=== PATIENT | male | born 1940 | race Caucasian/White ===

== ENCOUNTER → 2018-06-25 | Outpatient (REF) | payer MEDICARE, OTHER ==
[2018-06-25 15:29] LABS: ALBUMIN 4.2 GM/DL (3.2-5.2); BILIRUBIN,DIRECT 0.1 MG/DL (0.0-0.2); BILIRUBIN,TOTAL 0.5 MG/DL (0.2-1.0); TOTAL PROTEIN 7.5 GM/DL (6.4-8.2)
== END ==
LOC: M SFHCPLAZ 12:02
PROVIDERS: ATTEND Dermatology
DX: L60.8 Other nail disorders (principal)

== ENCOUNTER → 2018-06-25 | Outpatient (REF) | payer MEDICARE, OTHER | LOC: M SFHCPLAZ 19:25 | PROVIDERS: ATTEND Dermatology | DX: C44.02 Squamous cell carcinoma of skin of lip (principal); C44.612 Basal cell carcinoma of skin of right upper limb, including shoulder; C44.519 Basal cell carcinoma of skin of other part of trunk ==

== ENCOUNTER → 2018-11-28 | Outpatient (REF) | payer MEDICARE, OTHER | LOC: M SFHCPLAZ 17:08 | PROVIDERS: ATTEND Dermatology | DX: C44.02 Squamous cell carcinoma of skin of lip (principal) ==

== ENCOUNTER → 2019-09-11 | Outpatient (REF) | payer OTHER | LOC: M LAB REF 17:43 | PROVIDERS: ATTEND Dermatology | DX: L57.0 Actinic keratosis (principal) | CPT/HCPCS: 11102; 17000; 17003; 88305; G0463 ==

== ENCOUNTER → 2019-10-10 | Outpatient (REF) | payer OTHER | LOC: M LAB REF 17:34 → EEVIPCON 17:34 | PROVIDERS: ATTEND Dermatology | DX: S81.802A Unspecified open wound, left lower leg, initial encounter (principal); X58.XXXA Exposure to other specified factors, initial encounter; Y92.9 Unspecified place or not applicable ==

== ENCOUNTER → 2020-08-19 | Outpatient (CLI) | payer OTHER | LOC: M LABSMTC 10:11 | PROVIDERS: ATTEND Internal Medicine Cardiovascular Disease | DX: Z20.828 Contact with and (suspected) exposure to other viral communicable diseases (principal) ==

== ENCOUNTER 2020-09-26 00:30 | Inpatient (IN) | payer OTHER ==
[~2020-09-26] VITALS: Ht 182.9 cm; Wt 124.7 kg
[2020-09-26] MEDS ORDERED: ATOR40TA75 PO (03:35)
[2020-09-26] MEDS ORDERED: BIMA01SOL OU (03:35)
[2020-09-26] MEDS ORDERED: VITA500T17 PO (03:35)
[2020-09-26] MEDS ORDERED: CLOP75TA2 PO (03:35)
[2020-09-26] MEDS ORDERED: VALS1TAB67 PO (03:35)
[2020-09-26] MEDS ORDERED: QC A650T3 PO (03:35)
[2020-09-26] MEDS ORDERED: ASPI81TA26 PO (03:35)
[2020-09-26] MEDS ORDERED: DORZ2SOL5 OU (03:35)
[2020-09-26] MEDS ORDERED: SYST1SOL OU (03:37)
[2020-09-26] MEDS ORDERED: med rec comment (03:40)
[2020-09-26] MEDS ORDERED: MORPHINE 2 MG/ML 1ML VIAL (J2270) IV ONE (03:40)
[2020-09-26 04:01] LABS: BASO % 0.5 % (0.0-1.0); EOS # 0.2 10^3/uL (0.0-0.5); EOS % 2.6 % (0.0-3.0); HEMATOCRIT 34.9 % (42.0-52.0); HEMOGLOBIN 11.8 g/dl (13.5-17.5); LYMPH # 0.8 10^3/uL (1.5-5.0); LYMPH % 14.3 % (24.0-44.0); MEAN CORPUSCULAR HGB CONC 33.8 g/dl (32.0-36.5); MEAN CORPUSCULAR VOLUME 103.6 fl (80.0-96.0); MONO # 0.6 10^3/uL (0.0-0.8); MONO % 10.8 % (2.0-8.0); NEUTROPHILS % 71.3 % (36.0-66.0); RED BLOOD COUNT 3.37 10^6/uL (4.30-6.10); WHITE BLOOD COUNT 5.7 10^3/uL (4.0-10.0)
[2020-09-26 04:21] LABS: PLATELET COUNT, AUTOMATED 90 10^3/uL (150-450)
[2020-09-26 04:31] LABS: BLOOD UREA NITROGEN 17 MG/DL (7-18); CALCIUM LEVEL 8.7 MG/DL (8.8-10.2); CARBON DIOXIDE LEVEL 31 MEQ/L (21-32); CHLORIDE LEVEL 104 MEQ/L (98-107); CREATININE FOR GFR 0.81 MG/DL (0.70-1.30); GLOMERULAR FILTRATION RATE > 60.0 (>35); GLUCOSE, FASTING 110 MG/DL (70-100); POTASSIUM SERUM 3.9 MEQ/L (3.5-5.1); SODIUM LEVEL 140 MEQ/L (136-145)
[2020-09-26] MEDS ORDERED: HYDR-3490 PO (04:51)
[2020-09-26 05:03] LABS: TROPONIN I 0.05 NG/ML (< 0.10)
[2020-09-26] MEDS ORDERED: MAALOX 30 ML SUSP *UDC PO PRN (05:30)
[2020-09-26] MEDS ORDERED: MOM 30ML SUSPENSION UDC PO PRN (05:30)
--- NOTE | 2020-09-26 05:33 | HPEPDOC ---
[facility] Medical History & Physical Date of Admission Sep 26, 2020 Date of Service: Sep 26, 2020 History and Physical CHIEF COMPLAINT: R ankle fracture HISTORY OF PRESENT ILLNESS: Patient is an 79-year-old male with a history of coronary artery disease status post status post stenting, most recently on 09/24/20 at [facility], hypertension, suspected aortic valve stenosis with likely to have her in September 2020. After discharge from [facility] on 09/25/20, patient sustained a fall at home, mechanical, resulting in sudden onset of right ankle pain. Patient was evaluated at [facility] emergency room where x-rays indicated a bimalleolar fracture. Patient was transferred to [facility] ER for orthopedic surgery evaluation. Patient will be admitted to hospitalist service. An ongoing orthopedic evaluation. Discussed with Dr. Bonner considering minimally invasive surgery versus closed reduction with casting in the OR. Patient to be hypertensive in the ED, BP 171 or 77, temperature 97.9, pulse 87, respiratory 18, saturating 96% room air. Blood work reviewed, no leukocytosis. Hemoglobin 11.8. Platelets 90. Sodium 140. Potassium 3.9. Troponin 0.05. EKG showing normal sinus rhythm without ischemic changes. Patient denying chest pain, chest breath, palpitations, nausea, vomiting, diarrhea or headache. Complaining of moderate right ankle pain approximately 5 out of 10. PAST MEDICAL HISTORY: CAD s/p 5 stents 08/2020, 1 stent 09/24/20 Aortic valve stenosis s/p TAVR 09/21 at [facility]? HTN Hard of hearing PAST SURGICAL HISTORY: Appendectomy with partial colon resection for rupture appendix Cardiac stenting TAVR SOCIAL HISTORY: Former smoker No etoh use No illicit drug use FAMILY HISTORY: reviewed with patient, no relevent history provided ALLERGIES: Please see below. REVIEW OF SYSTEMS: 10 point ROS completed, relevant findings are noted in HPI HOME MEDICATIONS: Please see below. PHYSICAL EXAMINATION: VITAL SIGNS: please see below General: NAD, comfortable HEENT: PERRLA, EOMI, sclerae clear Neck: supple, normal ROM, no JVD Respiratory: lungs CTAB, no wheeze, no rales, no crackles CVS: RRR, normal S1, S2, no murmurs Abdo: soft, no masses, no hepatosplenomegaly, BS+, no rebound tenderness Extremities: no edema, pulses 2+ MSK: no joint deformities, normal ROM. R leg in splint. Moving all toes. No cyanosis. Neuro: no focal neuro deficits, moving all 4 extremities, CN2-12 intact. Strength 5/5 in all 4 extremities. No nystagmus. Psych: calm, cooperative, AAO x 3 LABORATORY DATA: See below. IMAGING: XR report from [facility] (09/25/20) reviewed: bimaleolar fracture R ankle. MICROBIOLOGY: Please see below. ASSESSMENT: Patient is an 79-year-old male with a history of coronary artery disease status post status post stenting, most recently was DCon 09/24/20 at [facility], hypertension, suspected aortic valve stenosis with likely to have her in September 2020. After discharge from [facility] on 09/25/20, patient sustained a fall at home, mechanical, resulting in sudden onset of right ankle pain. Patient was evaluated at [facility] emergency room where x-rays indicated a bimall eolar fracture. Transfered to [facility] for orthopedic surgery evaluation. Dr. Bonner consulted, considering minimally invasive surgery vs closed reduction with casting in the OR. . PLAN: CAD - s/p 1 stent at [facility], was DC on 09/24/20, and previously 5 stents placed in 08/2020 - c/w ASA, plavix - EKG showing no ischemic changes - Trop 0.05. Will repeat - presently free of chest pain - d/w Dr. Hubbard. No contraindication for surgery, other than need to continue plavix. - Dr. Bonner aware of recent stenting and need for ongoing DAPT. - pain control with morphine for breakthrough, tylenol - NPO at this time - RCRI score 1, 6.0% risk of 30 day risk of , [place] or cardiac arrest Aortic stenosis? hx reported by patient - reports TAVR? at [facility] 2 weeks ago - denies SOB, LOC, palpitations - placed request for records HTN - resume home meds: HCTZ 25 mg PO daily, Valsartan 80 mg daily Glaucoma - needs to bring bitamaprost drops DVT ppx: SCDs. TEDs. Vital Signs Vital Signs Date Time Temp Pulse Resp B/P (MAP) Pulse Ox O2 Delivery O2 Flow Rate FiO2 09/26/20 04:04 18 95 09/26/20 00:58 97.9 87 171/77 (108) Laboratory Data Labs 24H Laboratory Tests 2 09/26/20 03:37: Immature Granulocyte % (Auto) 0.5, Neutrophils (%) (Auto) 71.3H, Lymphocytes (%) (Auto) 14.3L, Monocytes (%) (Auto) 10.8H, Eosinophils (%) (Auto) 2.6, Basophils (%) (Auto) 0.5, Neutrophils # (Auto) 4.0, Lymphocytes # (Auto) 0.8L, Monocytes # (Auto) 0.6, Eosinophils # (Auto) 0.2, Basophils # (Auto) 0.0, Nucleated Red Blood Cells % (auto) 0.0, Immature Platelet Fraction 1.4, Anion Gap 5L, Glomerular Filtration Rate > 60.0, Calcium Level 8.7L, Troponin I 0.05 CBC/BMP Laboratory Tests 09/26/20 03:37 Home Medications Scheduled Aspirin (Aspirin EC) 81 Mg Tablet.dr, 81 MG PO DAILY Atorvastatin Calcium (Atorvastatin Calcium) 40 Mg Tablet, 40 MG PO QPM Bimatoprost (Lumigan) 0.01% 2.5ML Drops, 1 DROP OU DAILY Clopidogrel Bisulfate (Clopidogrel) 75 Mg Tablet, 75 MG PO DAILY Cyanocobalamin (Vitamin B-12) (Vitamin B-12) 500 Mcg Tablet, 500 MCG PO DAILY Dorzolamide HCl/Timolol Maleat (Dorzolamide-Timolol Eye Drops) 10 Ml Drops, 1 DROP OU BID Hydrochlorothiazide (Hydrochlorothiazide) 25 Mg Tablet, 25 MG PO DAILY Valsartan (Valsartan) 160 Mg Tablet, 80 MG PO DAILY Scheduled PRN Acetaminophen (Acetaminophen 8 Hour) 650 Mg Tablet.er, 1,300 MG PO Q8H PRN for pain Propylene Glycol/Peg 400 (Systane 0.3-0.4% Eye Drops) 15 Ml Drops, 1 DROP OU QID PRN for DRY EYES Miscellaneous Medications [med rec comment] pt unable to hear on phone. hung up phone,used external med history,list provided and last office visit 07/22/20 Allergies Coded Allergies: No Known Allergies (Unverified , 09/26/20) SANTHOSH OCONNOR MD Sep 26, 2020 05:33
[2020-09-26] MEDS ORDERED: MORPHINE 2 MG/ML 1ML VIAL (J2270) IV PRN (06:35)
[2020-09-26] MEDS ORDERED: D5W/0.9% SODIUM CHLORIDE 1,000 ML IV SCH (08:30)
[2020-09-26 08:55] VITALS: BP 171/77
[2020-09-26] MEDS: COSOPT OCUMETER PLUS 10ML (DORZOLAMIDE/TIMOLOL) OU SCH ×2 (09:00→21:20)
[2020-09-26] MEDS ORDERED: VALSARTAN 80 MG TAB (DIOVAN) PO SCH (09:00)
[2020-09-26] MEDS: DOCUSATE SODIUM 100MG CAPSULE PO SCH ×2 (09:00→21:20)
--- NOTE | 2020-09-26 09:53 | CR.PDOC ---
General Date of Consultation: Sep 26, 2020 Consultation REASON FOR CONSULTATION/CHIEF COMPLAINT: right ankle bimalleolar fracture minimally displaced History from patient and admission H&P HISTORY OF PRESENT ILLNESS: Patient is an 79-year-old male with a history of coronary artery disease status post status post stenting, most recently on 09/24/20 at [facility], hypertension, suspected aortic valve stenosis. After discharge from [facility] on 09/25/20, patient sustained a fall at home, mechanical, resulting in sudden onset of right ankle pain. Patient states that he did weightbear without significant pain. Patient was evaluated at [facility] emergency room where x-rays indicated a bimalleolar fracture. Patient was transferred to [facility] for orthopedic surgery evaluation. Patient admitted to hospitalist service. Patient states that he tripped over a root while walking outside. Pain is controlled at this time, but reports tension with swelling. PAST MEDICAL HISTORY: CAD s/p 5 stents 08/2020, 1 stent 09/24/20 Aortic valve stenosis s/p TAVR 09/21 at [facility]? HTN Hard of hearing PAST SURGICAL HISTORY: Appendectomy with partial colon resection for rupture appendix Cardiac stenting TAVR SOCIAL HISTORY: Former smoker No etoh use No illicit drug use FAMILY HISTORY: reviewed with patient, no relevent history provided ALLERGIES: Please see below. REVIEW OF SYSTEMS: See HPI HOME MEDICATIONS: Please see below. PHYSICAL EXAMINATION: Right lower extremity in backslab and sugartong splint. Sensation grossly intact to 1st webspace. Cap refill less than 3 seconds. Moving toes. LABORATORY DATA: See below. IMAGING: XR imaging shows bimalleolar ankle fracture of right side with minimal displacement. MICROBIOLOGY: Please see below. ASSESSMENT: Patient is an 79-year-old male with a history of coronary artery disease status post status post stenting, most recently was DCon 09/24/20 at [facility], hypertension, suspected aortic valve stenosis with likely to have her in September 2020. After discharge from [facility] on 09/25/20, patient sustained a fall at home, mechanical, resulting in sudden onset of right ankle pain. Patient was evaluated at [facility] emergency room where x-rays indicated a bimalleolar fracture. Transfered to [facility] for orthopedic surgery evaluation. PLAN: Discussed operative vs non operative options with patient. Patient consented for closed reduction and casting possible ORIF. After discussing risks and benefits outlined in the consent, the patient preferred casting given his multiple medical comorbidities. He is aware of risks of painful non or mal union and risk of Post traumatic OA. On speaking with the hospitalist service, patient would benefit from conservative treatment as he cannot be taken off ASA or plavix at this time due to recent stenting. Plan will be attempt at CR and casting. PT to eval and follow post op. NWB right leg. Vital Signs/I&O Vital Signs Date Time Temp Pulse Resp B/P (MAP) Pulse Ox O2 Delivery O2 Flow Rate FiO2 09/26/20 08:55 98.3 78 18 171/77 (108) 95 09/26/20 08:30 Room Air Laboratory Data Labs 24H Laboratory Tests 2 09/26/20 03:37: Immature Granulocyte % (Auto) 0.5, Neutrophils (%) (Auto) 71.3H, Lymphocytes (%) (Auto) 14.3L, Monocytes (%) (Auto) 10.8H, Eosinophils (%) (Auto) 2.6, Basophils (%) (Auto) 0.5, Neutrophils # (Auto) 4.0, Lymphocytes # (Auto) 0.8L, Monocytes # (Auto) 0.6, Eosinophils # (Auto) 0.2, Basophils # (Auto) 0.0, Nucleated Red Blood Cells % (auto) 0.0, Immature Platelet Fraction 1.4, Anion Gap 5L, Glomerular Filtration Rate > 60.0, Calcium Level 8.7L, Troponin I 0.05 09/26/20 07:53: Troponin I 0.04 CBC/BMP Laboratory Tests 09/26/20 03:37 Allergies Coded Allergies: No Known Allergies (Unverified , 09/26/20) Home Medications Scheduled Aspirin (Aspirin EC) 81 Mg Tablet.dr, 81 MG PO DAILY, (Reported) Atorvastatin Calcium (Atorvastatin Calcium) 40 Mg Tablet, 40 MG PO QPM, (Reported) Bimatoprost (Lumigan) 0.01% 2.5ML Drops, 1 DROP OU DAILY, (Reported) Clopidogrel Bisulfate (Clopidogrel) 75 Mg Tablet, 75 MG PO DAILY, (Reported) Cyanocobalamin (Vitamin B-12) (Vitamin B-12) 500 Mcg Tablet, 500 MCG PO DAILY, (Reported) Dorzolamide HCl/Timolol Maleat (Dorzolamide-Timolol Eye Drops) 10 Ml Drops, 1 DR OP OU BID, (Reported) Hydrochlorothiazide (Hydrochlorothiazide) 25 Mg Tablet, 25 MG PO DAILY, (Reported) Valsartan (Valsartan) 160 Mg Tablet, 80 MG PO DAILY, (Reported) Scheduled PRN Acetaminophen (Acetaminophen 8 Hour) 650 Mg Tablet.er, 1,300 MG PO Q8H PRN for pain, (Reported) Propylene Glycol/Peg 400 (Systane 0.3-0.4% Eye Drops) 15 Ml Drops, 1 DROP OU QID PRN for DRY EYES, (Reported) Miscellaneous Medications [med rec comment] , (Reported) pt unable to hear on phone. hung up phone,used external med history,list provided and last office visit 07/22/20 JOSESITO MCGINNIS MD Sep 26, 2020 09:53
[2020-09-26] MEDS: CYANOCOBALAMIN 500 MCG TAB PO SCH (09:57)
[2020-09-26 11:16] VITALS: BP 132/78
[2020-09-26 15:25] VITALS: BP 146/74
[2020-09-26] MEDS ORDERED: ONDANSETRON 4MG/2ML VIAL As Ordered ONE (15:48)
[2020-09-26] MEDS ORDERED: MIDAZOLAM INJ 2MG/2ML VIAL (J2250 PER 1MG) As Ordered ONE (15:48)
[2020-09-26] MEDS ORDERED: fentaNYL 100 MCG/2 ML INJECTION (J3010) As Ordered ONE (15:48)
[2020-09-26] MEDS ORDERED: propofoL 200 MG/20 ML VIAL As Ordered ONE (15:48)
[2020-09-26] MEDS ORDERED: LIDOCAINE 2% 100MG/5ML SDV (FOR ANES.) As Ordered ONE (15:48)
--- NOTE | 2020-09-26 17:31 | REP ---
INDICATION: Right ankle fracture COMPARISON: None. TECHNIQUE: Intraoperative fluoroscopic imaging C-arm technique. FINDINGS: Multiple images of the right ankle demonstrate generalized soft tissue swelling. Nondisplaced fracture is poorly identified. Total fluoroscopic time 13.2 seconds. IMPRESSION: Soft tissue swelling. <Electronically signed by Saul Camarillo > 09/26/20 [id number]
[2020-09-26] MEDS ORDERED: fentaNYL 100 MCG/2 ML INJECTION (J3010) IV PRN (17:35)
[2020-09-26] MEDS ORDERED: ONDANSETRON 4MG/2ML VIAL IV PRN (17:35)
[2020-09-26] MEDS ORDERED: LR 1,000 ML IV SCH (17:35)
--- NOTE | 2020-09-26 18:06 | REP ---
INDICATION: POST OP EVAL IN PACU COMPARISON: None. TECHNIQUE: AP, lateral, bilateral oblique views. FINDINGS: Satisfactory reduction of the distal fibular may metaphyseal fracture. Further evaluation is limited by overlying cast material. IMPRESSION: Satisfactory reduction of the distal fibular fracture. <Electronically signed by Saul Camarillo > 09/26/20 [id number]
[2020-09-26 18:11] VITALS: BP 128/74
--- NOTE | 2020-09-26 18:11 | ROOPDOC ---
[facility] Report Of Operation Report of Operation DATE OF PROCEDURE: 09/26/20 PREPROCEDURE DIAGNOSES: right ankle bimalleolar fracture POSTPROCEDURE DIAGNOSES: right ankle bimalleolar fracture PROCEDURE PERFORMED: Closed Reduction and casting R ankle fracture SURGEON: Louis Mcginnis MD RECRUITMENT AND OUTREACH ASSISTANT:[place] assist ANESTHESIA: Concious sedation ESTIMATED BLOOD LOSS: nil COMPLICATIONS: no known REMARKS: The patient has multiple medical comorbidities and is 2 days s/p cardiac stenting. It was agreed upon by the hospitalist service, anesthesia and the patient that we would try to avoid open surgical intervention. FINDINGS: Difficult to reduce medial malleolar fragment, possible soft tissue interposition, but the ankle mortise appeared to be improved, as did the displacement and position of the lateral malleolar fracture SPECIMENS REMOVED: nil PROCEDURE NOTE: Patient was grossly NVI prior to procedure to R foot and ankle DESCRIPTION OF PROCEDURE: Patient was transferred to the OR table, Procedural checklist and pause carried out. Anesthetic was induced. Splint was removed. Evidence of swelling with no obvious open wounds/fracture sites. Closed Reduction attempted and checked on fluoro. Imaging was somewhat difficu lt due to positioning, but it appeared the mortise position was improved. Webril was applied with extra padding to bony prominences. No stockinette was used due to risk of swelling. Plaster cast material was applied and appropriate molding performed. Fluoro appeared to show persistent displacement of the medial malleolus, but the mortise position and lateral malleolar position appeared improved. Plaster cast was allowed to cure. It was then split with the cast saw and opened to relieve some of the pressure to allow for swelling. Naldo wrap loosely applied. Ice applied to cool down splint and leg elevated. Anesthetic reversed and patient take to PACU in stable condition. Grossly NVI to right foot post casting. Moving toes, cap refill <3 seconds, sensation to 1st webspace. Patient will be readmitted to Hospitalist service with PT and OT to mobilize and eval. NWB Right leg. LOUIS MCGINNIS MD Sep 26, 2020 18:11
[2020-09-26] MEDS ORDERED: oxyCODONE 5MG TAB PO PRN ×2 (18:25)
[2020-09-26] MEDS: LR 1,000 ML IV SCH (19:00)
[2020-09-26 20:00] VITALS: BP 179/74
--- NOTE | 2020-09-26 20:49 | ECGEPIP ---
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
[2020-09-26] MEDS: ATORVASTATIN 20 MG TAB PO SCH (21:20)
[2020-09-27] VITALS: BP 145/70
[2020-09-27 04:00] VITALS: BP 144/70
[2020-09-27] MEDS: LR 1,000 ML IV SCH (04:22)
[2020-09-27 05:50] LABS: BASO % 0.4 % (0.0-1.0); EOS # 0.3 10^3/uL (0.0-0.5); EOS % 5.8 % (0.0-3.0); HEMATOCRIT 33.9 % (42.0-52.0); HEMOGLOBIN 11.7 g/dl (13.5-17.5); LYMPH # 0.9 10^3/uL (1.5-5.0); LYMPH % 17.1 % (24.0-44.0); MEAN CORPUSCULAR HEMOGLOBIN 35.7 pg (27.0-33.0); MEAN CORPUSCULAR HGB CONC 34.5 g/dl (32.0-36.5); MEAN CORPUSCULAR VOLUME 103.4 fl (80.0-96.0); MONO # 0.5 10^3/uL (0.0-0.8); MONO % 10.3 % (2.0-8.0); NEUTROPHILS # 3.3 10^3/uL (1.5-8.5); NEUTROPHILS % 65.6 % (36.0-66.0); RED BLOOD COUNT 3.28 10^6/uL (4.30-6.10)
[2020-09-27 05:53] LABS: PLATELET COUNT, AUTOMATED 80 10^3/uL (150-450)
[2020-09-27 06:09] LABS: BLOOD UREA NITROGEN 11 MG/DL (7-18); CALCIUM LEVEL 8.7 MG/DL (8.8-10.2); CARBON DIOXIDE LEVEL 30 MEQ/L (21-32); CHLORIDE LEVEL 103 MEQ/L (98-107); CREATININE FOR GFR 0.72 MG/DL (0.70-1.30); GLOMERULAR FILTRATION RATE > 60.0 (>35); GLUCOSE, FASTING 106 MG/DL (70-100); POTASSIUM SERUM 3.9 MEQ/L (3.5-5.1); SODIUM LEVEL 140 MEQ/L (136-145)
[2020-09-27 07:17] VITALS: BP 154/74
--- NOTE | 2020-09-27 08:53 | IPNPDOC ---
Text Note Date of Service The patient was seen on 09/27/20. NOTE POD 1 Right ankle # CR and casting Pt did well overnight, denies pain. PT in the room. Recommendation for further evaluation for tomorrow. Pt still not balanced to avoid wb to right ankle. Cast intact, pt states that it loosened up proximally overnight. Grossly NVI to R foot. Moving toes, cap refill < 3 seconds and sensation intact to first webspace. Naldo Tensor was removed from bivalved cast and reapplied to tighten down the bivalved area. Pt stated that it felt more snug, thereafter. NVI post tightening of wrap as above. Xray: Imaging taken in PACU post op shows an acceptable reduction of the lateral malleolar fracture with tenriism of the ankle mortise. There is mild displacement of the medial malleolar fracture on the lateral view. Overall acceptable CR of bimalleolar fracture given the patient's circumstances. Plan: Mobilize with PT. Hospitalist service following. Pt will remain in Hospital overnight. Plan for cast change this week in office, Monday, or in hospital if the pt remains due to other medical issues. Reiterated importance of NON weight bearing to right ankle to avoid possible need for surgery. VS,Fishbone, I+O VS, Fishbone, I+O Laboratory Tests 09/27/20 05:17 Vital Signs Date Time Temp Pulse Resp B/P (MAP) Pulse Ox O2 Delivery O2 Flow Rate FiO2 09/27/20 07:17 97.3 76 18 154/74 (100) 98 Room Air 09/26/20 17:49 2.0 I&O- Last 24 Hours up to 6 AM 09/27/20 06:00 Intake Total 780 ml Output Total 500 ml Balance 280 ml JOSESITO MCGINNIS MD Sep 27, 2020 08:53
[2020-09-27] MEDS: DOCUSATE SODIUM 100MG CAPSULE PO SCH ×2 (09:00→20:34)
--- NOTE | 2020-09-27 09:44 | IPNPDOC ---
Subjective Date Seen The patient was seen on 09/27/20. Subjective Chief Complaint/HPI Patient has been evaluated by PT and felt not be be safe for discharge home today. Objective Physical Examination General Exam: Positive: Alert, Cooperative, No Acute Distress Eye Exam: Positive: PERRLA, Conjunctiva & lids normal, EOMI; Negative: Sclera icteric ENT Exam: Positive: Atraumatic, Mucous membr. moist/pink, Pharynx Normal Neck Exam: Positive: Supple; Negative: JVD, thyromegaly Chest Exam: Positive: Clear to auscultation, Normal air movement Heart Exam: Positive: Rate Normal, Regular Rhythm, Normal S1, Normal S2; Negative: Murmurs, Rubs Abdomen Exam: Positive: Normal bowel sounds, Soft; Negative: Tenderness, Hepatospenomegaly Extremity Exam: Positive: Other (right ankle in cast.); Negative: Clubbing, Cyanosis, Edema Skin Exam: Positive: Nl turgor and temperature; Negative: Rash, Breakdown Assessment /Plan Assessment Patient is an 79-year-old male with PMH of coronary artery disease status post status post stenting, most recently on 09/24/20, hypertension, Aortic stenosis s/p TAVR on 09/02/2020, HLD, glaucoma, partial colectomy for ruptured appendix, jeffers d a mechanical fall at home on 09/25/20 sustaining right ankle bimalleolar fracture. Pateint was seen by Dr Bonner and in view of his recent cardiological interventions in the past month including a cardiac stent placement on 09/24/20 it was decided to avoid operative intervention. Patient underwent Closed Reduction and casting R ankle fracture in the OR. Right ankle bimalleolar fracture closed reduction and casting Non weight bearing on right lower extremity for 6 weeks. continue ASA and plavix. PT/OT CAD s/p 1 stent at [facility], was DC on 09/24/20, and previously 5 stents placed in 08/2020 c/w ASA, plavix Aortic stenosis s/p TAVR on 09/02/20 continue home meds. HTN continue HCTZ 25 mg PO daily, Valsartan 80 mg daily Glaucoma bimatoprost drops Obesity BMI of 37.3 complicating care. HLD statin Plan/VTE VTE Prophylaxis Ordered?: Yes VS, I&O, 24H, Fishbone Vital Signs/I&O Vital Signs Date Time Temp Pulse Resp B/P (MAP) Pulse Ox O2 Delivery O2 Flow Rate FiO2 09/27/20 07:17 97.3 76 18 154/74 (100) 98 Room Air 09/26/20 17:49 2.0 I&O- Last 24 Hours up to 6 AM 09/27/20 06:00 Intake Total 780 ml Output Total 500 ml Balance 280 ml Laboratory Data 24H LABS Laboratory Tests 2 09/26/20 07:53: Troponin I 0.04 09/27/20 05:17: Immature Granulocyte % (Auto) 0.8, Neutrophils (%) (Auto) 65.6, Lymphocytes (%) (Auto) 17.1L, Monocytes (%) (Auto) 10.3H, Eosinophils (%) (Auto) 5.8H, Basophils (%) (Auto) 0.4, Neutrophils # (Auto) 3.3, Lymphocytes # (Auto) 0.9L, Monocytes # (Auto) 0.5, Eosinophils # (Auto) 0.3, Basophils # (Auto) 0.0, Nucleated Red Blood Cells % (auto) 0.0, Immature Platelet Fraction 1.3, Anion Gap 7L, Glomerular Filtration Rate > 60.0, Calcium Level 8.7L CBC/BMP Laboratory Tests 09/27/20 05:17 EMILE CASAS MD Sep 27, 2020 07:52
[2020-09-27] MEDS: CLOPIDOGREL 75 MG TAB PO SCH (10:18)
[2020-09-27] MEDS: ASPIRIN 81MG ENTERIC TABLET PO SCH (10:18)
[2020-09-27] MEDS: CYANOCOBALAMIN 500 MCG TAB PO SCH (10:19)
[2020-09-27] MEDS: COSOPT OCUMETER PLUS 10ML (DORZOLAMIDE/TIMOLOL) OU SCH ×2 (10:19→20:34)
[2020-09-27] MEDS: VALSARTAN 80 MG TAB (DIOVAN) PO SCH (10:19)
[2020-09-27 11:34] VITALS: BP 115/62
[2020-09-27] MEDS: ACETAMINOPHEN TAB 650MG DOSE (2X325MG) PO PRN (13:48)
[2020-09-27 20:00] VITALS: BP 132/64
[2020-09-27] MEDS: ATORVASTATIN 20 MG TAB PO SCH (20:34)
[2020-09-28 04:00] VITALS: BP 124/61
[2020-09-28 06:00] LABS: BASO % 0.6 % (0.0-1.0); EOS # 0.3 10^3/uL (0.0-0.5); EOS % 6.8 % (0.0-3.0); HEMATOCRIT 33.4 % (42.0-52.0); HEMOGLOBIN 11.7 g/dl (13.5-17.5); LYMPH # 0.9 10^3/uL (1.5-5.0); LYMPH % 19.9 % (24.0-44.0); MEAN CORPUSCULAR VOLUME 102.8 fl (80.0-96.0); MONO # 0.4 10^3/uL (0.0-0.8); MONO % 9.4 % (2.0-8.0); NEUTROPHILS # 2.9 10^3/uL (1.5-8.5); NEUTROPHILS % 62.7 % (36.0-66.0); RED BLOOD COUNT 3.25 10^6/uL (4.30-6.10); WHITE BLOOD COUNT 4.7 10^3/uL (4.0-10.0)
[2020-09-28 06:04] LABS: PLATELET COUNT, AUTOMATED 95 10^3/uL (150-450)
[2020-09-28 06:26] LABS: BLOOD UREA NITROGEN 11 MG/DL (7-18); CALCIUM LEVEL 8.3 MG/DL (8.8-10.2); CARBON DIOXIDE LEVEL 32 MEQ/L (21-32); CHLORIDE LEVEL 102 MEQ/L (98-107); CREATININE FOR GFR 0.64 MG/DL (0.70-1.30); GLOMERULAR FILTRATION RATE > 60.0 (>35); GLUCOSE, FASTING 104 MG/DL (70-100); POTASSIUM SERUM 3.8 MEQ/L (3.5-5.1); SODIUM LEVEL 138 MEQ/L (136-145)
[2020-09-28 08:00] VITALS: BP 126/58
[2020-09-28] MEDS: ASPIRIN 81MG ENTERIC TABLET PO SCH (09:29)
[2020-09-28] MEDS: DOCUSATE SODIUM 100MG CAPSULE PO SCH ×2 (09:29→22:40)
[2020-09-28] MEDS: CYANOCOBALAMIN 500 MCG TAB PO SCH (09:31)
[2020-09-28] MEDS: CLOPIDOGREL 75 MG TAB PO SCH (09:31)
[2020-09-28] MEDS: COSOPT OCUMETER PLUS 10ML (DORZOLAMIDE/TIMOLOL) OU SCH ×2 (09:31→22:33)
[2020-09-28] MEDS: VALSARTAN 80 MG TAB (DIOVAN) PO SCH (09:34)
--- NOTE | 2020-09-28 09:50 | DS.PDOC ---
Discharge Summary General Date of Admission Sep 26, 2020 at 00:31 Date of Discharge 09/28/20 Discharge Summary PROCEDURES PERFORMED DURING STAY: [None]. DISCHARGE DIAGNOSES: Right ankle bimalleolar fracture SECONDARY DIAGNOSIS: CAD s/p multiple stents most recently on 09/24/20, hypertension, Aortic stenosis s/p TAVR on 09/02/2020, HLD, glaucoma, obesity, partial colectomy for ruptured appendix, COMPLICATIONS/CHIEF COMPLAINT: Ankle Fracture, Bimalleolar Closed. HOSPITAL COURSE: Patient is an 79-year-old male with PMH of coronary artery disease status post status post stenting, most recently on 09/24/20, hypertension, Aortic stenosis s/p TAVR on 09/02/2020, HLD, glaucoma, partial colectomy for ruptured appendix, had a mechanical fall at home on 09/25/20 sustaining right ankle bimalleolar fracture. Pateint was seen by Dr Bonner and in view of his recent cardiological interventions in the past month including a cardiac stent placement on 09/24/20 it was decided to avoid operative intervention. Patient underwent Closed Reduction and casting R ankle fracture in the OR. Right ankle bimalleolar fracture closed reduction and casting Imaging taken in PACU post op shows an acceptable reduction of the lateral malleolar fracture with episcopal of the ankle mortise. There is mild displacement of the medial malleolar fracture on the lateral view. Overall acceptable CR of bimalleolar fracture given the patient's circumstances. Plan for cast change this week in office, Monday, Non weight bearing on right lower extremity for 6 weeks. continue ASA and plavix. PT/OT CAD s/p 1 stent at [facility], was DC on 09/24/20, and previously 5 stents placed in 08/2020 c/w ASA, plavix Aortic stenosis s/p TAVR on 09/02/20 continue home meds. HTN continue HCTZ 25 mg PO daily, Valsartan 80 mg daily Glaucoma bimatoprost drops Obesity BMI of 37.3 complicating care. HLD statin DISCHARGE MEDICATIONS: Please see below. ALLERGIES: Please see below. PHYSICAL EXAMINATION ON DISCHARGE: VITAL SIGNS: Please see below. General Exam: Positive: Alert, Cooperative, No Acute Distress Eye Exam: Positive: PERRLA, Conjunctiva & lids normal, EOMI; Negative: Sclera icteric ENT Exam: Positive: Atraumatic, Mucous membr. moist/pink, Pharynx Normal Neck Exam: Positive: Supple; Negative: JVD, thyromegaly Chest Exam: Positive: Clear to auscultation, Normal air movement Heart Exam: Positive: Rate Normal, Regular Rhythm, Normal S1, Normal S2; Negative: Murmurs, Rubs Abdomen Exam: Positive: Normal bowel sounds, Soft; Negative: Tenderness, Hepatosplenomegaly Extremity Exam: Positive: Other (right ankle in cast.); Negative: Clubbing, Cyanosis, Edema Skin Exam: Positive: Nl turgor and temperature; Negative: Rash, Breakdown LABORATORY DATA: Please see below. ACTIVITY: Non weight bearing on right lower extremity x 6 weeks DIET: Regular DISCHARGE PLAN: Rehab vs home with services DISCHARGE INSTRUCTIONS: Follow up with Dr Bonner on 10/02/20 for cast change DISCHARGE CONDITION: [Stable]. TIME SPENT ON DISCHARGE: 35 minutes. Vital Signs/I&Os Vital Signs Date Time Temp Pulse Resp B/P (MAP) Pulse Ox O2 Delivery O2 Flow Rate FiO2 09/28/20 04:00 97.3 71 20 124/61 (82) 96 Room Air 09/26/20 17:49 2.0 I&O- Last 24 Hours up to 6 AM 09/28/20 05:59 Intake Total 900 ml Output Total 2575 ml Balance -1675 ml Laboratory Data Labs 24H Laboratory Tests 2 09/28/20 05:20: Immature Granulocyte % (Auto) 0.6, Neutrophils (%) (Auto) 62.7, Lymphocytes (%) (Auto) 19.9L, Monocytes (%) (Auto) 9.4H, Eosinophils (%) (Auto) 6.8H, Basophils (%) (Auto) 0.6, Neutrophils # (Auto) 2.9, Lymphocytes # (Auto) 0.9L, Monocytes # (Auto) 0.4, Eosinophils # (Auto) 0.3, Basophils # (Auto) 0.0, Nucleated Red Blood Cells % (auto) 0.0, Immature Platelet Fraction 1.2, Anion Gap 4L, Glomerular Filtration Rate > 60.0, Calcium Level 8.3L CBC/BMP Laboratory Tests 09/28/20 05:20 Discharge Medications Scheduled Aspirin (Aspirin EC) 81 Mg Tablet.dr 81 MG PO DAILY, (Reported) Atorvastatin Calcium (Atorvastatin Calcium) 40 Mg Tablet, 40 MG PO QPM, (Reported) Bimatoprost (Lumigan) 0.01% 2.5ML Drops, 1 DROP OU DAILY, (Reported) Clopidogrel Bisulfate (Clopidogrel) 75 Mg Tablet, 75 MG PO DAILY, (Reported) Cyanocobalamin (Vitamin B-12) (Vitamin B-12) 500 Mcg Tablet, 500 MCG PO DAILY, (Reported) Dorzolamide HCl/Timolol Maleat (Dorzolamide-Timolol Eye Drops) 10 Ml Drops, 1 DROP OU BID, (Reported) Hydrochlorothiazide (Hydrochlorothiazide) 25 Mg Tablet, 25 MG PO DAILY, (Reported) Valsartan (Valsartan) 160 Mg Tablet, 80 MG PO DAILY, (Reported) Scheduled PRN Acetaminophen (Acetaminophen 8 Hour) 650 Mg Tablet.er, 1,300 MG PO Q8H PRN for pain, (Reported) Propylene Glycol/Peg 400 (Systane 0.3-0.4% Eye Drops) 15 Ml Drops, 1 DROP OU QID PRN for DRY EYES, (Reported) Miscellaneous Medications [med rec comment] , (Reported) pt unable to hear on phone. hung up phone,used external med history,list provided and last office visit 07/22/20 Allergies Coded Allergies: No Known Allergies (Unverified , 09/26/20) EMILE CASAS MD Sep 28, 2020 07:00
[2020-09-28 10:30] VITALS: BP 142/70
[2020-09-28 14:00] VITALS: BP 135/81
[2020-09-28] MEDS: ATORVASTATIN 20 MG TAB PO SCH (22:33)
[2020-09-29 00:58] VITALS: BP 104/72
[2020-09-29 06:00] VITALS: BP 103/72
[2020-09-29 07:07] LABS: HEMOGLOBIN 12.7 g/dl (13.5-17.5); MEAN CORPUSCULAR HEMOGLOBIN 35.1 pg (27.0-33.0); MEAN CORPUSCULAR HGB CONC 34.3 g/dl (32.0-36.5); MEAN CORPUSCULAR VOLUME 102.2 fl (80.0-96.0); PLATELET COUNT, AUTOMATED 111 10^3/uL (150-450); RED BLOOD COUNT 3.62 10^6/uL (4.30-6.10); WHITE BLOOD COUNT 9.6 10^3/uL (4.0-10.0)
[2020-09-29 07:38] LABS: CALCIUM LEVEL 9.1 MG/DL (8.8-10.2); CREATININE FOR GFR 1.92 MG/DL (0.70-1.30); GLOMERULAR FILTRATION RATE 36.1 (>35); POTASSIUM SERUM 4.2 MEQ/L (3.5-5.1)
[2020-09-29] MEDS ORDERED: NS 1,000 ML IV SCH (08:00)
[2020-09-29] MEDS: VALSARTAN 80 MG TAB (DIOVAN) PO SCH (09:00)
[2020-09-29] MEDS: DOCUSATE SODIUM 100MG CAPSULE PO SCH ×2 (09:00→20:18)
[2020-09-29] MEDS: CLOPIDOGREL 75 MG TAB PO SCH (09:16)
[2020-09-29] MEDS: ASPIRIN 81MG ENTERIC TABLET PO SCH (09:16)
[2020-09-29] MEDS: CYANOCOBALAMIN 500 MCG TAB PO SCH (09:16)
[2020-09-29] MEDS: COSOPT OCUMETER PLUS 10ML (DORZOLAMIDE/TIMOLOL) OU SCH ×2 (09:16→20:23)
--- NOTE | 2020-09-29 13:19 | IPNPDOC ---
Text Note Date of Service The patient was seen on 09/29/20. NOTE Subjective: Patient seen and examined this morning at bedside. He is in good spirits. He is looking forward to rehabilitation. Nurse noted small amount of blood in his stools repeat CBC shows stable hemoglobin. This is likely in the setting of being on dual antiplatelet aspirin and Plavix. No acute overnight events reported to me. Waiting for insurance to clear for discharge to acute rehabilitation unit Objective: Constitutional: Awake and alert, in no apparent distress ENT: Sclera are clear. Mucosa is moist. Respiratory: Lungs CTA bilaterally. No respiratory distress. Cardiovascular: Regular rate and rhythm no murmurs appreciated Gastrointestinal: Abdomen is soft, non distended, non tender, BS present. Musculoskeletal: Right ankle cast Neurologic: No focal neurological deficit. Mental Status: A&O x3, normal affect Skin: No visible rashes Assessment/plan: Patient is an 79-year-old male with PMH of coronary artery disease status post status post stenting, most recently on 09/24/20, hypertension, Aortic stenosis s/p TAVR on 09/02/2020, HLD, glaucoma, partial colectomy for ruptured appendix, had a mechanical fall at home on 09/25/20 sustaining right ankle bimalleolar fracture. Pateint was seen by Dr Bonner and in view of his recent cardiological interventions in the past month including a cardiac stent placement on 09/24/20 it was decided to avoid operative intervention. Patient underwent Closed Reduction and casting R ankle fracture in the OR. Right ankle bimalleolar fracture closed reduction and casting Non weight bearing on right lower extremity for 6 weeks. continue ASA and plavix. Fu OP with ortho PT/OT GI bleed likely in the setting of recently being on ASA and plavix. given recent stent he need dual antiplatelet therapy. Repeat CBC showed stable hgb. Continue to watch and transfuse if necessary. May eventually need follow up with GI after discharge for scopes if bleeding persists. CAD s/p 1 stent at [facility], was DC on 09/24/20, and previously 5 stents placed in 08/2020 c/w ASA, plavix Aortic stenosis s/p TAVR on 09/02/20 continue home meds. HTN continue HCTZ 25 mg PO daily, Valsartan 80 mg daily Glaucoma bimatoprost drops Obesity BMI of 37.3 complicating care. HLD statin Dispo: ARU pending insurance [facility] Hospitalist Lynne HANSEN, I+O Lynne HANSEN I+O Laboratory Tests 09/29/20 06:48 Vital Signs Date Time Temp Pulse Resp B/P (MAP) Pulse Ox O2 Delivery O2 Flow Rate FiO2 09/29/20 09:00 103/72 09/29/20 06:00 98.6 88 19 97 Room Air 09/26/20 17:49 2.0 I&O- Last 24 Hours up to 6 AM 09/29/20 06:00 Intake Total 1410 ml Output Total 500 ml Balance 910 ml GERRI GROSSMAN MD Sep 29, 2020 13:19
[2020-09-29 13:20] LABS: HEMATOCRIT 35.4 % (42.0-52.0); HEMOGLOBIN 12.3 g/dl (13.5-17.5)
[2020-09-29 13:54] LABS: CREATININE FOR GFR 1.55 MG/DL (0.70-1.30); GLOMERULAR FILTRATION RATE 46.2 (>35)
[2020-09-29 14:00] VITALS: BP 116/61
[2020-09-29 20:12] VITALS: BP 117/61
[2020-09-29] MEDS: ATORVASTATIN 20 MG TAB PO SCH (20:14)
[2020-09-30 06:00] VITALS: BP 119/74
[2020-09-30 06:33] LABS: HEMOGLOBIN 11.6 g/dl (13.5-17.5); MEAN CORPUSCULAR HEMOGLOBIN 34.9 pg (27.0-33.0); MEAN CORPUSCULAR HGB CONC 34.1 g/dl (32.0-36.5); MEAN CORPUSCULAR VOLUME 102.4 fl (80.0-96.0); PLATELET COUNT, AUTOMATED 100 10^3/uL (150-450); RED BLOOD COUNT 3.32 10^6/uL (4.30-6.10); WHITE BLOOD COUNT 7.4 10^3/uL (4.0-10.0)
[2020-09-30 07:00] LABS: BLOOD UREA NITROGEN 27 MG/DL (7-18); CALCIUM LEVEL 8.3 MG/DL (8.8-10.2); CARBON DIOXIDE LEVEL 30 MEQ/L (21-32); CHLORIDE LEVEL 101 MEQ/L (98-107); CREATININE FOR GFR 0.99 MG/DL (0.70-1.30); GLOMERULAR FILTRATION RATE > 60.0 (>35); GLUCOSE, FASTING 119 MG/DL (70-100); POTASSIUM SERUM 3.7 MEQ/L (3.5-5.1); SODIUM LEVEL 134 MEQ/L (136-145)
[2020-09-30] MEDS: ASPIRIN 81MG ENTERIC TABLET PO SCH (08:51)
[2020-09-30] MEDS: DOCUSATE SODIUM 100MG CAPSULE PO SCH ×2 (08:51→20:08)
[2020-09-30] MEDS: COSOPT OCUMETER PLUS 10ML (DORZOLAMIDE/TIMOLOL) OU SCH ×2 (08:51→20:07)
[2020-09-30] MEDS: VALSARTAN 80 MG TAB (DIOVAN) PO SCH (08:51)
[2020-09-30] MEDS: CYANOCOBALAMIN 500 MCG TAB PO SCH (08:51)
[2020-09-30] MEDS: CLOPIDOGREL 75 MG TAB PO SCH (08:51)
[2020-09-30 14:00] VITALS: BP 119/68
--- NOTE | 2020-09-30 14:55 | IPNPDOC ---
Text Note Date of Service The patient was seen on 09/30/20. NOTE Subjective: Patient seen and examined this morning at bedside. Discussed with him the plan for rehabilitation. He tells me has noticed no more blood in his stools denies black stools. He tells me he has a history of hemorrhoids and he had a small external hemorrhoid that he thinks popped yesterday which is what caused the bleeding. Otherwise he feels well to acute overnight events reported to me. Denies any chest pain shortness of breath fevers or chills. Objective: Constitutional: Awake and alert, in no apparent distress ENT: Sclera are clear. Mucosa is moist. Respiratory: Lungs CTA bilaterally. No respiratory distress. Cardiovascular: Regular rate and rhythm no murmurs appreciated Gastrointestinal: Abdomen is soft, non distended, non tender, BS present. Musculoskeletal: Right ankle cast Neurologic: No focal neurological deficit. Mental Status: A&O x3, normal affect Skin: No visible rashes Assessment/plan: Patient is an 79-year-old male with PMH of coronary artery disease status post status post stenting, most recently on 09/24/20, hypertension, Aortic stenosis s/p TAVR on 09/02/2020, HLD, glaucoma, partial colectomy for ruptured appendix, had a mechanical fall at home on 09/25/20 sustaining right ankle bimalleolar fracture. Pateint was seen by Dr Bonner and in view of his recent cardiological interventions in the past month including a cardiac stent placement on 09/24/20 it was decided to avoid operative intervention. Patient underwent Closed Re duction and casting R ankle fracture in the OR. Right ankle bimalleolar fracture closed reduction and casting Non weight bearing on right lower extremity for 6 weeks. continue ASA and plavix. Fu OP with ortho PT/OT GI bleed likely in the setting of recently being on ASA and plavix. given recent stent he need dual antiplatelet therapy. Repeat CBC showed stable hgb. Continue to watch and transfuse if necessary. May eventually need follow up with GI after discharge for scopes if bleeding persists. No further bleeding episodes since the initial episode on 09/29 CAD s/p 1 stent at [facility], was DC on 09/24/20, and previously 5 stents placed in 08/2020 c/w ASA, plavix Aortic stenosis s/p TAVR on 09/02/20 continue home meds. HTN continue HCTZ 25 mg PO daily, Valsartan 80 mg daily Glaucoma bimatoprost drops Obesity BMI of 37.3 complicating care. HLD statin Dispo: Insurance denied ARU admission. Switched to [facility] status pending subacute rehabilitation [facility] Hospitalist Lynne HANSEN, I+O VSLynne I+O Laboratory Tests 09/30/20 05:55 Vital Signs Date Time Temp Pulse Resp B/P (MAP) Pulse Ox O2 Delivery O2 Flow Rate FiO2 09/30/20 08:51 154/90 09/30/20 06:00 98.3 79 20 95 Room Air 09/26/20 17:49 2.0 I&O- Last 24 Hours up to 6 AM 09/30/20 06:00 Intake Total 700 ml Output Total 600 ml Balance 100 ml GERRI GROSSMAN MD Sep 30, 2020 14:55
[2020-09-30] MEDS: ATORVASTATIN 20 MG TAB PO SCH (20:07)
[2020-10-01 06:45] VITALS: BP 123/68
[2020-10-01] MEDS: COSOPT OCUMETER PLUS 10ML (DORZOLAMIDE/TIMOLOL) OU SCH ×2 (08:57→22:16)
[2020-10-01] MEDS: ASPIRIN 81MG ENTERIC TABLET PO SCH (08:57)
[2020-10-01] MEDS: CYANOCOBALAMIN 500 MCG TAB PO SCH (08:58)
[2020-10-01] MEDS: CLOPIDOGREL 75 MG TAB PO SCH (08:58)
[2020-10-01] MEDS: DOCUSATE SODIUM 100MG CAPSULE PO SCH ×2 (08:59→21:00)
[2020-10-01] MEDS: VALSARTAN 80 MG TAB (DIOVAN) PO SCH (08:59)
[2020-10-01] MEDS: ATORVASTATIN 20 MG TAB PO SCH (22:16)
[2020-10-01] MEDS: ACETAMINOPHEN TAB 650MG DOSE (2X325MG) PO PRN (22:17)
[2020-10-02 05:52] VITALS: BP 129/72
[2020-10-02] MEDS: COSOPT OCUMETER PLUS 10ML (DORZOLAMIDE/TIMOLOL) OU SCH ×2 (10:13→22:09)
[2020-10-02] MEDS: ASPIRIN 81MG ENTERIC TABLET PO SCH (10:13)
[2020-10-02] MEDS: CLOPIDOGREL 75 MG TAB PO SCH (10:13)
[2020-10-02] MEDS: VALSARTAN 80 MG TAB (DIOVAN) PO SCH (10:16)
[2020-10-02] MEDS: DOCUSATE SODIUM 100MG CAPSULE PO SCH ×3 (10:23→22:08)
[2020-10-02] MEDS: CYANOCOBALAMIN 500 MCG TAB PO SCH (10:23)
--- NOTE | 2020-10-02 13:46 | IPNPDOC ---
Text Note Date of Service The patient was seen on 10/02/20. NOTE The patient is just shy of a week out from having closed reduction and casting performed. This is for a right ankle bimalleolar fracture. The patient currently is not a surgical candidate and is being managed conservatively with casting. The patient denies any significant complaints or concerns related to his ankle. He does report that the cast starts to feel little bit looser around his foot. He was scheduled for a follow-up appointment in the clinic today for a cast change; however, he has not been able to be discharged due to failure to thrive as he lives alone. Apparently steps are being taken and he is receiving physical therapy in anticipation of discharge. A cast change was performed with a new fiberglass cast being applied. This was applied by the TRANSPORTATION SERVICES REPRESENTATIVE casting nurse from the clinic and appropriately molded by myself. The patient was found to be neurovascularly intact post casting as he was able to move his toes and had sensation to areas of the foot that were accessible in a cap refill less than 2 seconds X-ray imaging will be obtained post casting while the patient is in the hospital. He will be seen for follow-up in 3 weeks time in the clinic for evaluation of the cast for possible change. VS,Fishbone, I+O VS, Fishbone, I+O Vital Signs Date Time Temp Pulse Resp B/P (MAP) Pulse Ox O2 Delivery O2 Flow Rate FiO2 10/02/20 10:47 18 Room Air 10/02/20 10:16 129/72 10/02/20 05:52 97.2 70 96 09/26/20 17:49 2.0 I&O- Last 24 Hours up to 6 AM 10/02/20 05:59 Intake Total 2340 ml Output Total 4350 ml Balance -2009 ml JOSESITO MCGINNIS MD Oct 02, 2020 13:46
[2020-10-02 14:00] VITALS: BP 133/82
--- NOTE | 2020-10-02 14:16 | REP ---
INDICATION: right ankle bimalleolar # - casted COMPARISON: 09/26/2020 TECHNIQUE: AP, lateral, bilateral oblique views. FINDINGS: Nondisplaced distal fibular metaphyseal fracture and minimally displaced medial malleolar fracture noted with overlying soft tissue swelling. IMPRESSION: Known by malleolar fractures similar to prior examination. <Electronically signed by Saul Camarillo > 10/02/20 [id number]
[2020-10-02] MEDS: ATORVASTATIN 20 MG TAB PO SCH (22:08)
[2020-10-03 06:00] VITALS: BP 123/81
[2020-10-03] MEDS: DOCUSATE SODIUM 100MG CAPSULE PO SCH ×2 (09:00→21:45)
[2020-10-03] MEDS: VALSARTAN 80 MG TAB (DIOVAN) PO SCH (09:36)
[2020-10-03] MEDS: CLOPIDOGREL 75 MG TAB PO SCH (09:36)
[2020-10-03] MEDS: ASPIRIN 81MG ENTERIC TABLET PO SCH (09:36)
[2020-10-03] MEDS: CYANOCOBALAMIN 500 MCG TAB PO SCH (09:36)
[2020-10-03] MEDS: COSOPT OCUMETER PLUS 10ML (DORZOLAMIDE/TIMOLOL) OU SCH ×2 (09:37→21:45)
[2020-10-03] MEDS: POLYVINYL ALCOHOL OPHTH SOLN 15 ML(LIQUITEARS) OU PRN (21:45)
[2020-10-03] MEDS: LATANOPROST 0.005% OPHTH SOLN 2.5 ML OU SCH (21:45)
[2020-10-03] MEDS: ATORVASTATIN 20 MG TAB PO SCH (21:46)
[2020-10-04 06:00] VITALS: BP 141/84
[2020-10-04] MEDS: DOCUSATE SODIUM 100MG CAPSULE PO SCH ×2 (09:00→20:46)
[2020-10-04] MEDS: COSOPT OCUMETER PLUS 10ML (DORZOLAMIDE/TIMOLOL) OU SCH ×3 (09:04→23:10)
[2020-10-04] MEDS: POLYVINYL ALCOHOL OPHTH SOLN 15 ML(LIQUITEARS) OU PRN ×2 (09:04→20:47)
[2020-10-04] MEDS: CYANOCOBALAMIN 500 MCG TAB PO SCH (09:05)
[2020-10-04] MEDS: CLOPIDOGREL 75 MG TAB PO SCH (09:05)
[2020-10-04] MEDS: ASPIRIN 81MG ENTERIC TABLET PO SCH (09:05)
[2020-10-04] MEDS: VALSARTAN 80 MG TAB (DIOVAN) PO SCH (09:05)
[2020-10-04] MEDS: ATORVASTATIN 20 MG TAB PO SCH (20:46)
[2020-10-04] MEDS: LATANOPROST 0.005% OPHTH SOLN 2.5 ML OU SCH (20:53)
[2020-10-05] MEDS: ACETAMINOPHEN TAB 650MG DOSE (2X325MG) PO PRN (01:29)
[2020-10-05 06:00] VITALS: BP 129/74
[2020-10-05] MEDS: VALSARTAN 80 MG TAB (DIOVAN) PO SCH (08:26)
[2020-10-05] MEDS: DOCUSATE SODIUM 100MG CAPSULE PO SCH ×2 (08:26→21:00)
[2020-10-05] MEDS: ASPIRIN 81MG ENTERIC TABLET PO SCH (08:26)
[2020-10-05] MEDS: CYANOCOBALAMIN 500 MCG TAB PO SCH (08:27)
[2020-10-05] MEDS: CLOPIDOGREL 75 MG TAB PO SCH (08:27)
[2020-10-05] MEDS: COSOPT OCUMETER PLUS 10ML (DORZOLAMIDE/TIMOLOL) OU SCH ×2 (08:27→21:38)
[2020-10-05 11:19] LABS: HEMATOCRIT 35.6 % (42.0-52.0); HEMOGLOBIN 12.6 g/dl (13.5-17.5); MEAN CORPUSCULAR HEMOGLOBIN 35.3 pg (27.0-33.0); MEAN CORPUSCULAR HGB CONC 35.4 g/dl (32.0-36.5); MEAN CORPUSCULAR VOLUME 99.7 fl (80.0-96.0); PLATELET COUNT, AUTOMATED 131 10^3/uL (150-450); RED BLOOD COUNT 3.57 10^6/uL (4.30-6.10); WHITE BLOOD COUNT 5.6 10^3/uL (4.0-10.0)
[2020-10-05 12:00] LABS: ALBUMIN 3.7 GM/DL (3.2-5.2); ALT/SGPT 24 U/L (12-78); BILIRUBIN,TOTAL 0.6 MG/DL (0.2-1.0); BLOOD UREA NITROGEN 14 MG/DL (7-18); CALCIUM LEVEL 8.9 MG/DL (8.8-10.2); CARBON DIOXIDE LEVEL 29 MEQ/L (21-32); CHLORIDE LEVEL 99 MEQ/L (98-107); CREATININE FOR GFR 0.87 MG/DL (0.70-1.30); GLOMERULAR FILTRATION RATE > 60.0 (>35); GLUCOSE, FASTING 115 MG/DL (70-100); POTASSIUM SERUM 3.6 MEQ/L (3.5-5.1); SODIUM LEVEL 137 MEQ/L (136-145); TOTAL PROTEIN 6.9 GM/DL (6.4-8.2)
[2020-10-05] MEDS: LATANOPROST 0.005% OPHTH SOLN 2.5 ML OU SCH (21:38)
[2020-10-05] MEDS: ATORVASTATIN 20 MG TAB PO SCH (21:38)
[2020-10-06] MEDS: ACETAMINOPHEN TAB 650MG DOSE (2X325MG) PO PRN (03:40)
[2020-10-06 06:00] VITALS: BP 136/73
[2020-10-06] MEDS: DOCUSATE SODIUM 100MG CAPSULE PO SCH (09:00)
[2020-10-06] MEDS: CLOPIDOGREL 75 MG TAB PO SCH (09:23)
[2020-10-06 09:24] VITALS: BP 136/73
[2020-10-06] MEDS: VALSARTAN 80 MG TAB (DIOVAN) PO SCH (09:24)
[2020-10-06] MEDS: CYANOCOBALAMIN 500 MCG TAB PO SCH (09:24)
[2020-10-06] MEDS: ASPIRIN 81MG ENTERIC TABLET PO SCH (09:25)
[2020-10-06] MEDS: COSOPT OCUMETER PLUS 10ML (DORZOLAMIDE/TIMOLOL) OU SCH (09:30)
--- NOTE | 2020-10-06 10:33 | DSES ---
DISCHARGE SUMMARY DATE OF ADMISSION: 09/26/2020 DATE OF DISCHARGE: 10/06/2020 PRINCIPAL DIAGNOSIS: Right ankle bimalleolar fracture status post closed reduction and casting by Dr. Louis Bonner. SECONDARY DIAGNOSES: 1. GI bleed secondary to aspirin and Plavix. 2. Coronary artery disease status post drug-eluting stent placed 08/2020. 3. Aortic stenosis status post TAVR 09/2020. 4. Hypertension. 5. Glaucoma. 6. Obesity complicating care. 7. Hyperlipidemia. HISTORY: I did not provide any care for this patient. I was covering the hospitalist. Looks like he came in with a right ankle bimalleolar fracture. He underwent closed reduction and casting. He did have evidence of a GI bleed and was on aspirin and Plavix because of recent drug-eluting stent. These needed to be continued. Serial CBCs were stable, and he did not show evidence of active bleeding. The rest of his medical problems were stable during the hospitalization. We did labs yesterday. White count 5.6, hemoglobin 12.6, platelets 131. Sodium 137, potassium 3.7, BUN 14, creatinine 0.8, glucose 115. Imaging showed the bimalleolar fracture and then showed post reduction films. DISPOSITION: He was discharged home in improved and stable condition. FOLLOW UP: Follow with his primary care provider in a week. Follow with Orthopedics per Dr. Bonner's office. DISCHARGE MEDICATIONS: 1. Tylenol as needed. 2. Aspirin 81 mg daily. 3. Atorvastatin 40 mg daily. 4. Eye drops. 5. Plavix 75 mg daily. 6. B12 500 mcg daily. 7. Hydrochlorothiazide 25 mg daily. 8. Valsartan 80 mg daily. DISCHARGE INSTRUCTIONS: Activities as tolerated. No added salt, low fat/cholesterol diet. Home health care referral made. Wheelchair provided on discharge.
== END 2020-10-06 15:35 | disposition home health service (06) | DRG 563 ==
LOC: M ED 00:30 → M ED INP 00:31 → EEVIPCON 00:31 → M PCU 08:40 → M MS5PR 09-28 10:20
PROVIDERS: ADMIT Family Medicine; ATTEND Family Medicine
PROC: 0QSJXZZ Reposition Right Fibula, External Approach (ICD-10-PCS; principal; 2020-10-02)
DX: S82.841A Displaced bimalleolar fracture of right lower leg, initial encounter for closed fracture (principal); K92.2 Gastrointestinal hemorrhage, unspecified; N17.9 Acute kidney failure, unspecified; I25.10 Atherosclerotic heart disease of native coronary artery without angina pectoris; Z95.5 Presence of coronary angioplasty implant and graft; I10 Essential (primary) hypertension; I35.0 Nonrheumatic aortic (valve) stenosis; Z87.891 Personal history of nicotine dependence; H40.9 Unspecified glaucoma; Z79.82 Long term (current) use of aspirin; Z79.899 Other long term (current) drug therapy; W01.0XXA Fall on same level from slipping, tripping and stumbling without subsequent striking against object, initial encounter; Y92.009 Unspecified place in unspecified non-institutional (private) residence as the place of occurrence of the external cause; E66.9 Obesity, unspecified; Z68.37 Body mass index [BMI] 37.0-37.9, adult; E78.5 Hyperlipidemia, unspecified

== ENCOUNTER → 2020-10-23 | Outpatient (CLI) | payer OTHER ==
[~2020-10-23] MED LIST: ASPI81TA26 PO; ATOR40TA75 PO; BIMA01SOL OU; CLOP75TA2 PO; DORZ2SOL5 OU; HYDR-3490 PO; QC A650T3 PO; SYST1SOL OU; VALS1TAB67 PO; VITA500T17 PO; med rec comment
--- NOTE | 2020-10-23 13:18 | REP ---
INDICATION: DISPLACE BIMALLEOLAR FX RT. COMPARISON: Comparison ankle radiographs October 03, 2019.. TECHNIQUE: Four views of the right ankle are obtained through overlying cast material. FINDINGS: Bimalleolar ankle fracture is again seen. Ankle mortise is very slightly widened medially. On oblique view, the horizontally oriented medial malleolar fracture is slightly displaced. Fine bone detail is obscured. There is persistent soft tissue swelling IMPRESSION: Bimalleolar fracture unchanged in alignment from the October 02, 2020 study. <Electronically signed by Garret Marlow > 10/23/20 [id number]
== END ==
LOC: M SOG 07:56
PROVIDERS: ATTEND Orthopaedic Surgery Adult Reconstructive Orthopaedic Surgery
DX: S82.841A Displaced bimalleolar fracture of right lower leg, initial encounter for closed fracture (principal); Z47.89 Encounter for other orthopedic aftercare; X58.XXXA Exposure to other specified factors, initial encounter; Y92.9 Unspecified place or not applicable

== ENCOUNTER → 2020-11-10 | Outpatient (CLI) | payer OTHER ==
--- NOTE | 2020-11-10 09:39 | REP ---
INDICATION: DISPLACED FX. COMPARISON: Multiple the latest 10/23/2020 TECHNIQUE: Four views without the cast. FINDINGS: The overlying cast seen on the prior exam has been removed. The by malleolar fracture is again noted and is essentially unchanged compared to initial radiographs 09/25/2020 from an outside institution. There is a stable retrocalcaneal heel spur. Stable chronic changes are again seen in the midfoot region. IMPRESSION: No significant change compared to the prior exams other than cast removal. <Electronically signed by Jluis Campos > 11/10/20 [id number]
== END ==
LOC: M SOG 08:04
PROVIDERS: ATTEND Orthopaedic Surgery Adult Reconstructive Orthopaedic Surgery
DX: S82.841A Displaced bimalleolar fracture of right lower leg, initial encounter for closed fracture (principal); M77.31 Calcaneal spur, right foot; X58.XXXA Exposure to other specified factors, initial encounter; Y92.9 Unspecified place or not applicable; Y93.9 Activity, unspecified; Y99.9 Unspecified external cause status

== ENCOUNTER → 2020-12-09 | Outpatient (CLI) | payer OTHER ==
--- NOTE | 2020-12-09 08:24 | REP ---
INDICATION: ANKLE FX FOLLOW-UP. COMPARISON: 11/10/2020 TECHNIQUE: Three views FINDINGS: The margins of the distal fibular fracture are less distinct when compared to the prior exam. This is consistent with callus formation. The medial malleolar fracture is unchanged. A well-demarcated lucency persists. There is no change in the mortise. There is soft tissue swelling. There is no acute fracture. There is a retrocalcaneal heel spur status quo. IMPRESSION: Fractures as described above <Electronically signed by Jluis Campos > 12/09/20 [id number]
== END ==
LOC: M SOG 07:57
PROVIDERS: ATTEND Orthopaedic Surgery Adult Reconstructive Orthopaedic Surgery
DX: S82.841D Displaced bimalleolar fracture of right lower leg, subsequent encounter for closed fracture with routine healing (principal); X58.XXXD Exposure to other specified factors, subsequent encounter; Y92.9 Unspecified place or not applicable; Y93.9 Activity, unspecified; Y99.9 Unspecified external cause status